=== PATIENT | male | born 1970 | race African-American/Black ===

== ENCOUNTER → 2021-01-21 | Outpatient (CLI) | payer BC ==
--- NOTE | 2021-01-21 17:21 | MR ---
EXAMINATION TYPE: MR knee LT wo con DATE OF EXAM: 01/21/2021 COMPARISON: None HISTORY: Left knee pain, swelling x 2 years. The anterior and posterior cruciate ligaments appear intact. There is mild knee joint effusion. There is large horizontal tear of the posterior horn medial meniscus extending to the inferior surface. Th e lateral meniscus appears intact. There is narrowing of the medial joint space. There is spurring of the medial and lateral femoral and tibial condyles. There is medial displacement of the medial menis cus. The collateral ligaments are intact. There is mild edema in the subchondral medial aspect medial tibial condyle consistent with a small bone bruise. This area measures 1 cm. There is 1.5 cm area of is slight increased signal at the base of the tibial spines on the T2 images that could relate to so me mild bone bruise. The patella is intact. There is subcutaneous edema over the anterior patella ten don. IMPRESSION: Osteoarthritis in the medial joint space with joint space narrowing and medial displacement of the me niscus. There is large horizontal tear posterior horn medial meniscus. No ligamentous tear. Mild knee joint effusion. Mild subcutaneous anterior edema.
== END | disposition home or self-care (01) ==
LOC: RADMRIMAIN 13:22
PROVIDERS: ATTEND Family Medicine
DX: M23.322 Other meniscus derangements, posterior horn of medial meniscus, left knee (principal); M17.12 Unilateral primary osteoarthritis, left knee